=== PATIENT | male | born 1980 | race African-American/Black ===

== ENCOUNTER 2016-11-10 11:11 | Emergency (ER) | payer SELFPAY ==
[~2016-11-10] VITALS: Ht 170.2 cm; Wt 94.6 kg
[~2016-11-10 11:11] MED LIST: MOBIC7.5 MG PO; MOTRIN800 MG PO; NAPROSYN500 MG PO; NOHOMEMEDS; NORCO 5/3251 TABLET PO; PREDNISONE10 M1 PO
[2016-11-10 11:17] VITALS: BP 125/82
[2016-11-10] MEDS ORDERED: PERCOCET 5/31 TABLET PO (13:02)
[2016-11-10] MEDS ORDERED: TOBREX3.5 GM BOTH EYES (13:02)
== END 2016-11-10 13:59 | disposition home or self-care (01) ==
LOC: EME 11:11
DX: S05.02XA Injury of conjunctiva and corneal abrasion without foreign body, left eye, initial encounter (principal); S05.12XA Contusion of eyeball and orbital tissues, left eye, initial encounter; Y04.0XXA Assault by unarmed brawl or fight, initial encounter
CPT/HCPCS: 70480; 99281; 99284

== ENCOUNTER 2017-01-29 11:11 | Emergency (ER) | payer SELFPAY ==
[~2017-01-29] VITALS: Ht 167.6 cm; Wt 95.3 kg
[~2017-01-29 11:11] MED LIST changes: +PERCOCET 5/31 TABLET PO; +TOBREX3.5 GM BOTH EYES
[2017-01-29] MEDS ORDERED: AMOXICILLIN500 MG PO (12:23)
[2017-01-29] MEDS ORDERED: NAPROSYN500 MG PO (12:23)
[2017-01-29 12:42] VITALS: BP 189/108
== END 2017-01-29 12:43 | disposition home or self-care (01) ==
LOC: EXP 11:11 → EME 11:11 → EXP 12:43
PROC: 3E0T3BZ Introduction of Anesthetic Agent into Peripheral Nerves and Plexi, Percutaneous Approach (ICD-10-PCS; principal; 2017-01-29)
DX: K08.89 Other specified disorders of teeth and supporting structures (principal)
CPT/HCPCS: 99281; 99283

== ENCOUNTER 2017-06-06 17:04 | Emergency (ER) | payer SELFPAY ==
[~2017-06-06] VITALS: Ht 165.1 cm; Wt 90.9 kg
[~2017-06-06 17:04] MED LIST changes: +AMOXICILLIN500 MG PO
[2017-06-06 17:24] LABS: HEMATOCRIT 48.6 % (38.0-50.0); MCH 30.5 PG (29.0-34.0); MCV 89.8 FL (86-99); MEAN PLAT.VOLUME 10.5 uM^3 (9.0-12.4); PLATELET COUNT 357 K/uL (156-360); RBC DIS.WIDTH-CV 12.4 % (11.8-14.6); RBC DIS.WIDTH-SD 41.2 % (39-53); RED BLOOD COUNT 5.41 M/uL (4.00-5.50); WHITE BLOOD COUNT 10.2 K/uL (4.1-10.2)
[2017-06-06 17:37] LABS: CHLORIDE 104 mEq/L (99-109); SODIUM 141 mEq/L (136-147)
[2017-06-06 17:39] LABS: GLUCOSE 149 mg/dL (70-99)
[2017-06-06 17:40] LABS: ANION GAP 16 MEQ/L (2-14)
[2017-06-06 17:41] LABS: TOTAL BILIRUBIN 0.6 mg/dL (0.0-1.0)
[2017-06-06 17:42] LABS: ALKALINE PHOSPHATASE 99 IU/L (3-129)
[2017-06-06 17:43] LABS: GFR ESTIMATE (CALCULATED) > 59 mL/min/
[2017-06-06 17:44] LABS: UREA NITROGEN (BUN) 8 mg/dL (9-23)
[2017-06-06 19:25] LABS: LIPASE 12 U/L (1.0-51.0)
[2017-06-06 20:14] LABS: ADD MIUA? YES; BILIRUBIN NEGATIVE; BLOOD NEGATIVE; COLOR AMBER ((YELLOW)); GLUCOSE (STRIP) NEGATIVE; KETONES 20; LEUKOCYTES SMALL; NITRITE NEGATIVE; PROTEIN (STRIP) 100
[2017-06-06 20:39] LABS: BACTERIA NONE SEEN /HPF; EPITHELIAL CELLS 1+ /HPF; MUCUS 4+ /LPF; UCUL ADDED? YES; WHITE BLOOD CELLS 15-20 /HPF (0-5)
[2017-06-06] MEDS ORDERED: DOXYCYCLINE HY100 MG PO (21:12)
[2017-06-06 22:40] VITALS: BP 146/80
== END 2017-06-06 22:45 | disposition home or self-care (01) ==
LOC: EME 17:04
DX: R10.9 Unspecified abdominal pain (principal); F17.200 Nicotine dependence, unspecified, uncomplicated
CPT/HCPCS: 74176; 80053; 81003; 83690; 85027; 87086; 99281; 99285; J1885; J2270; J2405

== ENCOUNTER 2017-06-10 17:18 | Emergency (ER) | payer SELFPAY ==
[~2017-06-10] VITALS: Ht 167.6 cm; Wt 90.0 kg
[~2017-06-10 17:18] MED LIST changes: +DOXYCYCLINE HY100 MG PO
[2017-06-10 19:17] LABS: HEMATOCRIT 48.6 % (38.0-50.0); MCH 30.2 PG (29.0-34.0); MCHC 34.2 G/DL (30.0-36.0); MCV 88.4 FL (86-99); MEAN PLAT.VOLUME 10.6 uM^3 (9.0-12.4); PLATELET COUNT 360 K/uL (156-360); RBC DIS.WIDTH-CV 11.9 % (11.8-14.6); RBC DIS.WIDTH-SD 39.2 % (39-53); WHITE BLOOD COUNT 7.7 K/uL (4.1-10.2)
[2017-06-10 19:28] LABS: CHLORIDE 103 mEq/L (99-109); POTASSIUM 3.9 mEq/L (3.7-5.4); SODIUM 143 mEq/L (136-147)
[2017-06-10 19:30] LABS: GLUCOSE 110 mg/dL (70-99)
[2017-06-10 19:31] LABS: ANION GAP 17 MEQ/L (2-14)
[2017-06-10 19:34] LABS: GFR ESTIMATE (CALCULATED) > 59 mL/min/
[2017-06-10 19:35] LABS: UREA NITROGEN (BUN) 11 mg/dL (9-23)
[2017-06-10 19:37] LABS: TROP-I INTERPRETATION NEGATIVE; TROPONIN-I < 0.01 ng/mL (0.0-0.30)
[2017-06-10 21:13] LABS: TOTAL BILIRUBIN 1.1 mg/dL (0.0-1.0)
[2017-06-10 21:14] LABS: ALKALINE PHOSPHATASE 90 IU/L (3-129)
[2017-06-10 21:16] LABS: DIRECT BILIRUBIN 0.4 mg/dL (0.0-0.3)
[2017-06-10 21:17] LABS: LIPASE 12 U/L (1.0-51.0)
[2017-06-10 21:27] LABS: INTERNAL CONTROL VALID? YES; MONOSPOT (MONONUCLEOSIS SEROL) NEGATIVE
[2017-06-10 21:30] LABS: ADD MIUA? YES; BILIRUBIN NEGATIVE; BLOOD NEGATIVE; COLOR AMBER ((YELLOW)); GLUCOSE (STRIP) NEGATIVE; KETONES 20; LEUKOCYTES TRACE; NITRITE NEGATIVE; PROTEIN (STRIP) 100; SPECIFIC GRAVITY 1.045 (1.000-1.030)
[2017-06-10 21:45] LABS: INFLUENZA A VIRAL ANTIGEN NEGATIVE; INFLUENZA B VIRAL ANTIGEN NEGATIVE
[2017-06-10 21:47] LABS: RED BLOOD CELLS 0-5 /HPF (0-5); WHITE BLOOD CELLS 0-5 /HPF (0-5)
[2017-06-10 21:48] LABS: BACTERIA 1+ /HPF; CASTS PRESENT /LPF; CRYSTALS NONE SEEN; EPITHELIAL CELLS RARE /HPF; HYALINE CASTS 0-5 /LPF; MUCUS 3+ /LPF; UCUL ADDED? NO
[2017-06-10 23:31] LABS: TROP-I INTERPRETATION NEGATIVE; TROPONIN-I < 0.01 ng/mL (0.0-0.30)
[2017-06-11] MEDS ORDERED: FLAGYL500 MG PO (01:16)
[2017-06-11] MEDS ORDERED: CIPRO500 MG PO (01:16)
[2017-06-11 01:29] VITALS: BP 177/89
[2017-06-11] MEDS ORDERED: ZOFRAN ODT4 MG PO (01:31)
== END 2017-06-11 01:33 | disposition home or self-care (01) ==
LOC: EME 17:18
PROVIDERS: Physician Assistant Medical
DX: K51.30 Ulcerative (chronic) rectosigmoiditis without complications (principal); R10.9 Unspecified abdominal pain; R07.9 Chest pain, unspecified; F17.200 Nicotine dependence, unspecified, uncomplicated
CPT/HCPCS: 71020; 74177; 80048; 80076; 81003; 83690; 84484; 85027; 86308; 87502; 93005; 99281; 99285; J1885; J2270; J2405; J7030

== ENCOUNTER 2017-09-25 15:18 | Observation (INO) | payer OTHER ==
[~2017-09-25] VITALS: Ht 170.2 cm; Wt 79.3 kg
[~2017-09-25 15:18] MED LIST changes: +CIPRO500 MG PO; +FLAGYL500 MG PO; +ZOFRAN ODT4 MG PO
[2017-09-25 16:06] LABS: HEMATOCRIT 46.9 % (38.0-50.0); HEMOGLOBIN 16.4 G/DL (12.5-16.6); MCH 31.1 PG (29.0-34.0); MCV 88.8 FL (86-99); PLATELET COUNT 338 K/uL (156-360); RBC DIS.WIDTH-CV 11.9 % (11.8-14.6); RBC DIS.WIDTH-SD 38.5 % (39-53); RED BLOOD COUNT 5.28 M/uL (4.00-5.50); WHITE BLOOD COUNT 7.2 K/uL (4.1-10.2)
[2017-09-25 16:17] LABS: ALBUMIN 4.4 g/dL (3.2-4.8); CHLORIDE 94 mEq/L (99-109); POTASSIUM 2.8 mEq/L (3.7-5.4); SODIUM 135 mEq/L (136-147)
[2017-09-25 16:20] LABS: GLUCOSE 182 mg/dL (70-99); TOTAL PROTEIN 8.3 g/dL (6.4-8.3)
[2017-09-25 16:22] LABS: TOTAL BILIRUBIN 1.1 mg/dL (0.0-1.0)
[2017-09-25 16:23] LABS: ALKALINE PHOSPHATASE 79 IU/L (3-129); CREATININE 1.4 mg/dL (0.6-1.3); GFR ESTIMATE (CALCULATED) > 59 mL/min/ (58.99-99999)
[2017-09-25 16:24] LABS: UREA NITROGEN (BUN) 10 mg/dL (9-23)
[2017-09-25 16:25] LABS: AST (GOT) 25 IU/L (2-34)
[2017-09-25 16:26] LABS: ALT (GPT) 24 IU/L (3-49)
[2017-09-25 17:38] LABS: DIRECT BILIRUBIN 0.4 mg/dL (0.0-0.3)
[2017-09-25 17:39] LABS: LIPASE 19 U/L (1.0-51.0)
[2017-09-25 20:17] LABS: APPEARANCE CLEAR ((CLEAR)); BILIRUBIN SMALL; BLOOD NEGATIVE; COLOR AMBER ((YELLOW)); GLUCOSE (STRIP) NEGATIVE; KETONES 20; LEUKOCYTES NEGATIVE; NITRITE NEGATIVE; PROTEIN (STRIP) 100
[2017-09-25 20:24] LABS: AMPHETAMINE NEGATIVE (500 ng/mL); BARBITURATES NEGATIVE (200 ng/mL); BENZODIAZEPINES NEGATIVE (150 ng/mL); BUPRENORPHINE NEGATIVE (10 ng/mL); COCAINE NEGATIVE (150 ng/mL); METHADONE NEGATIVE (200 ng/mL); METHAMPHETAMINE NEGATIVE (500 ng/mL); OPIATES (MORPHINE) NEGATIVE (100 ng/mL); OXYCODONE NEGATIVE (100 ng/mL); PHENCYCLIDINE NEGATIVE (25 ng/mL); PROPOXYPHENE NEGATIVE (300 ng/mL); THC CANNABINOIDS PRESUMPTIVE POSITIVE (50 ng/mL); TRICYCLIC ANTIDEPRESSANTS NEGATIVE (300 ng/mL)
[2017-09-25 20:30] LABS: BACTERIA NONE SEEN /HPF; EPITHELIAL CELLS 1+ /HPF; MUCUS 4+ /LPF; RED BLOOD CELLS 0-5 /HPF (0-5); UCUL ADDED? YES
[2017-09-25 22:31] LABS: Estimated Average Glucose 91 mg/dL (70-123); HEMOGLOBIN A1c (GLYCOHEMOGLOB) 4.8 % HGB (Below 5.7)
[2017-09-25 22:40] VITALS: BP 159/105
[2017-09-26 00:20] LABS: TROP-I INTERPRETATION NEGATIVE; TROPONIN-I 0.02 ng/mL (0.0-0.30)
[2017-09-26 04:53] VITALS: BP 130/77
[2017-09-26 05:45] LABS: HEMATOCRIT 41.3 % (38.0-50.0); MCH 30.2 PG (29.0-34.0); MCHC 33.2 G/DL (30.0-36.0); PLATELET COUNT 281 K/uL (156-360); RBC DIS.WIDTH-CV 12.2 % (11.8-14.6); RBC DIS.WIDTH-SD 40.8 % (39-53); RED BLOOD COUNT 4.54 M/uL (4.00-5.50); TROP-I INTERPRETATION NEGATIVE; TROPONIN-I 0.01 ng/mL (0.0-0.30); WHITE BLOOD COUNT 7.9 K/uL (4.1-10.2)
[2017-09-26 05:47] LABS: HEMOGLOBIN 13.7 G/DL (12.5-16.6)
[2017-09-26 05:54] LABS: CHLORIDE 102 MEQ/L (99-109); CREATININE 1.2 MG/DL (0.6-1.3); GFR ESTIMATE (CALCULATED) > 59 mL/min/ (58.99-99999); POTASSIUM 3.1 MEQ/L (3.7-5.4); SODIUM 140 MEQ/L (136-147); UREA NITROGEN (BUN) 10 mg/dL (9-23)
[2017-09-26 05:58] LABS: GLUCOSE 95 mg/dL (70-99)
[2017-09-26 07:52] LABS: CREATINE KINASE 211 IU/L (1-294)
[2017-09-26 09:18] VITALS: BP 186/114
[2017-09-26 11:00] VITALS: BP 136/84
[2017-09-26] MEDS ORDERED: POLYETHYLENE GL17 GM PO (13:00)
[2017-09-26] MEDS ORDERED: ONDANSETRON ODT4 MG PO (13:00)
[2017-09-26] MEDS ORDERED: CEFDINIR300 MG PO (13:00)
[2017-09-26 13:58] LABS: TROP-I INTERPRETATION NEGATIVE; TROPONIN-I < 0.01 ng/mL (0.0-0.30)
[2017-09-26 15:47] VITALS: BP 132/89
== END 2017-09-26 17:05 | disposition home or self-care (01) ==
LOC: EME 15:18 → 5WEST 21:36 → EDOF 21:36 → ENRESERV 21:38 → 5WEST 22:32
PROVIDERS: Hospitalist; Physician Assistant
DX: E87.6 Hypokalemia (principal); E86.0 Dehydration; R10.10 Upper abdominal pain, unspecified; E87.1 Hypo-osmolality and hyponatremia; I10 Essential (primary) hypertension; R07.9 Chest pain, unspecified; R11.2 Nausea with vomiting, unspecified; T40.7X5A Adverse effect of cannabis (derivatives), initial encounter; F12.90 Cannabis use, unspecified, uncomplicated; Z86.69 Personal history of other diseases of the nervous system and sense organs; K59.09 Other constipation; Z82.3 Family history of stroke; F17.210 Nicotine dependence, cigarettes, uncomplicated; Z91.013 Allergy to seafood
CPT/HCPCS: 71020; 74177; 80048; 80053; 81003; 82248; 82550; 82948; 83036; 83605; 83690; 84484; 84999; 85027; 87040; 87086; 93005; 93306; 99281; 99285; C9113; G0378; J0696; J1200; J1650; J1885; J2270; J2765; J3010; J3480; J7030

== ENCOUNTER 2018-02-01 19:52 | Emergency (ER) | payer OTHER ==
[~2018-02-01] VITALS: Ht 170.2 cm; Wt 80.6 kg
[~2018-02-01 19:52] MED LIST changes: +CEFDINIR300 MG PO; +ONDANSETRON ODT4 MG PO; +POLYETHYLENE GL17 GM PO
[2018-02-01] MEDS ORDERED: FLEXERIL10 MG PO (21:10)
[2018-02-01] MEDS ORDERED: MOTRIN800 MG PO (21:10)
[2018-02-01 21:34] VITALS: BP 165/100
== END 2018-02-01 21:35 | disposition home or self-care (01) ==
LOC: RME 19:52 → EME 19:52 → RME 21:35
DX: M62.838 Other muscle spasm (principal); V49.9XXA Car occupant (driver) (passenger) injured in unspecified traffic accident, initial encounter; Y92.410 Unspecified street and highway as the place of occurrence of the external cause; I10 Essential (primary) hypertension
CPT/HCPCS: 99281; 99284

== ENCOUNTER 2018-05-15 13:49 | Inpatient (IN) | payer OTHER ==
[~2018-05-15] VITALS: Ht 170.2 cm; Wt 72.0 kg
[~2018-05-15 13:49] MED LIST changes: +FLEXERIL10 MG PO
[2018-05-15] MEDS ORDERED: PROPRANOLOL HCL80 MG PO (14:13)
[2018-05-15 14:36] LABS: HEMATOCRIT 52.3 % (38.0-50.0); HEMOGLOBIN 18.3 G/DL (12.5-16.6); MCH 30.7 PG (29.0-34.0); MCV 87.8 FL (86-99); PLATELET COUNT 377 K/uL (156-360); RBC DIS.WIDTH-CV 12.3 % (11.8-14.6); RBC DIS.WIDTH-SD 39.8 % (39-53); RED BLOOD COUNT 5.96 M/uL (4.00-5.50); WHITE BLOOD COUNT 9.7 K/uL (4.1-10.2)
[2018-05-15 14:45] LABS: ALBUMIN 5.7 g/dL (3.2-4.8); CHLORIDE 102 mEq/L (99-109); POTASSIUM 3.6 mEq/L (3.7-5.4); SODIUM 138 mEq/L (136-147)
[2018-05-15 14:48] LABS: GLUCOSE 146 mg/dL (70-99); TOTAL PROTEIN 10.6 g/dL (6.4-8.3)
[2018-05-15 14:50] LABS: TOTAL BILIRUBIN 0.8 mg/dL (0.0-1.0)
[2018-05-15 14:51] LABS: ALKALINE PHOSPHATASE 114 IU/L (3-129); GFR ESTIMATE (CALCULATED) 31 mL/min/ (58.99-99999)
[2018-05-15 14:53] LABS: AST (GOT) 33 IU/L (2-34); UREA NITROGEN (BUN) 38 mg/dL (9-23)
[2018-05-15 14:54] LABS: ALT (GPT) 29 IU/L (3-49)
[2018-05-15 14:55] LABS: LIPASE 15 U/L (1.0-51.0)
[2018-05-15 15:41] LABS: SERUM ETHYL ALCOHOL < 10 mg/dL
[2018-05-15 15:44] LABS: CREATINE KINASE 545 IU/L (1-294)
[2018-05-15 17:54] LABS: APPEARANCE SL.HAZY ((CLEAR)); BILIRUBIN NEGATIVE; BLOOD SMALL; COLOR YELLOW ((YELLOW)); GLUCOSE (STRIP) NEGATIVE; KETONES 20; LEUKOCYTES NEGATIVE; NITRITE NEGATIVE; PROTEIN (STRIP) 100; SPECIFIC GRAVITY 1.027 (1.000-1.030)
[2018-05-15 18:00] LABS: BACTERIA NONE SEEN /HPF; EPITHELIAL CELLS RARE /HPF; MUCUS 1+ /LPF; RED BLOOD CELLS 0-5 /HPF (0-5); UCUL ADDED? NO; WHITE BLOOD CELLS 0-5 /HPF (0-5)
[2018-05-15 18:08] LABS: AMPHETAMINE NEGATIVE (500 ng/mL); BARBITURATES NEGATIVE (200 ng/mL); BENZODIAZEPINES PRESUMPTIVE POSITIVE (150 ng/mL); BUPRENORPHINE NEGATIVE (10 ng/mL); COCAINE NEGATIVE (150 ng/mL); METHADONE NEGATIVE (200 ng/mL); METHAMPHETAMINE NEGATIVE (500 ng/mL); OPIATES (MORPHINE) NEGATIVE (100 ng/mL); OXYCODONE NEGATIVE (100 ng/mL); PHENCYCLIDINE NEGATIVE (25 ng/mL); PROPOXYPHENE NEGATIVE (300 ng/mL); THC CANNABINOIDS PRESUMPTIVE POSITIVE (50 ng/mL); TRICYCLIC ANTIDEPRESSANTS NEGATIVE (300 ng/mL)
[2018-05-15 18:37] LABS: BENZODIAZEPINES, URINE SCREEN Negative (200 ng/mL)
[2018-05-15 21:02] LABS: COMMENTS - BLOOD GASES A+C+; DEVICE RA; PCO2 26 mm Hg (35-45); PO2 107 mm Hg (80-100); SITE LR; pH 7.44 (7.35-7.45)
[2018-05-15 21:03] LABS: BASE EXCESS -4.5 mEq/L (-3 to +3); BICARBONATE 17.7 mEq/L (22-26); CARBOXY HGB 1.8 % (0-5); METHEMOGLOBIN 1.3 % (0-1.5); O2 SATURATION (CALCULATED) 96.2 % (95-99)
[2018-05-15 21:08] VITALS: BP 187/97
[2018-05-15 23:28] VITALS: BP 181/91
[2018-05-16 00:47] VITALS: BP 160/80
[2018-05-16 06:20] LABS: BASOPHIL (%) 0.2 % (0-1); EOSINOPHIL (%) 0 % (0-5); HEMATOCRIT 42.6 % (38.0-50.0); IMMATURE GRANULOCYTE (%) 0.3 % (0.0-0.7); LYMPHOCYTE (%) 19.2 % (15-42); LYMPHOCYTE COUNT 1.9 K/uL (1.0-2.8); MCH 30.3 PG (29.0-34.0); MCV 89.1 FL (86-99); MONOCYTE (%) 10.2 % (3-12); NEUTROPHIL (%) 70.1 % (45-76); NEUTROPHIL COUNT 6.9 K/uL (1.8-6.4); PLATELET COUNT 297 K/uL (156-360); RBC DIS.WIDTH-CV 12.6 % (11.8-14.6); RBC DIS.WIDTH-SD 41.6 % (39-53); WHITE BLOOD COUNT 9.9 K/uL (4.1-10.2)
[2018-05-16 06:22] LABS: HEMOGLOBIN 14.5 G/DL (12.5-16.6); RED BLOOD COUNT 4.78 M/uL (4.00-5.50)
[2018-05-16 06:28] LABS: CHLORIDE 108 MEQ/L (99-109); POTASSIUM 3.8 MEQ/L (3.7-5.4); SODIUM 139 MEQ/L (136-147); UREA NITROGEN (BUN) 28 mg/dL (9-23)
[2018-05-16 06:31] LABS: CREATININE 1.5 MG/DL (0.6-1.3); GFR ESTIMATE (CALCULATED) > 59 mL/min/ (58.99-99999); GLUCOSE 109 mg/dL (70-99)
[2018-05-16 07:09] VITALS: BP 129/67
[2018-05-16 16:35] VITALS: BP 140/80
[2018-05-16 17:25] LABS: UR CREATININE CONCENTRATION 518.7 MG/DL
[2018-05-16 22:57] VITALS: BP 192/96
[2018-05-17] LABS: ALBUMIN 4.1 g/dL (3.2-4.8)
[2018-05-17 00:07] LABS: ALKALINE PHOSPHATASE 73 IU/L (3-129); TOTAL BILIRUBIN 1.2 mg/dL (0.0-1.0); TOTAL PROTEIN 7.2 g/dL (6.4-8.3)
[2018-05-17 00:08] LABS: AST (GOT) 27 IU/L (2-34); DIRECT BILIRUBIN 0.4 mg/dL (0.0-0.3)
[2018-05-17 00:09] LABS: ALT (GPT) 17 IU/L (3-49); LIPASE 29 U/L (1.0-51.0)
[2018-05-17 06:13] LABS: BASOPHIL (%) 0.6 % (0-1); EOSINOPHIL (%) 0.4 % (0-5); HEMATOCRIT 40.6 % (38.0-50.0); HEMOGLOBIN 13.8 G/DL (12.5-16.6); IMMATURE GRANULOCYTE (%) 0.3 % (0.0-0.7); LYMPHOCYTE (%) 22.9 % (15-42); LYMPHOCYTE COUNT 1.6 K/uL (1.0-2.8); MCH 30.8 PG (29.0-34.0); MCV 90.6 FL (86-99); MONOCYTE (%) 9.3 % (3-12); MONOCYTE COUNT 0.6 K/uL (0-0.8); NEUTROPHIL (%) 66.5 % (45-76); NEUTROPHIL COUNT 4.6 K/uL (1.8-6.4); PLATELET COUNT 255 K/uL (156-360); RBC DIS.WIDTH-CV 12.5 % (11.8-14.6); RBC DIS.WIDTH-SD 41.4 % (39-53); RED BLOOD COUNT 4.48 M/uL (4.00-5.50); WHITE BLOOD COUNT 6.9 K/uL (4.1-10.2)
[2018-05-17 06:37] LABS: A/G RATIO 1.4 (1.1-1.8); ALBUMIN 3.9 G/DL (3.4-5.0); CHLORIDE 107 MEQ/L (99-109); CREATINE KINASE 451 IU/L (1-294); CREATININE 1.1 MG/DL (0.6-1.3); GFR ESTIMATE (CALCULATED) > 59 mL/min/ (58.99-99999); GLOBULINS 2.8 G/DL (2.3-3.5); GLUCOSE 103 mg/dL (70-99); POTASSIUM 3.8 MEQ/L (3.7-5.4); SODIUM 140 MEQ/L (136-147); TOTAL CK 451 IU/L (1-294); TOTAL PROTEIN 6.7 G/DL (6.4-8.2); UREA NITROGEN (BUN) 12 mg/dL (9-23)
[2018-05-17 07:12] LABS: CK-MB 2.5 ng/mL (0.0-4.9); CKMB RELATIVE INDEX 0.6 (0.0-3.9)
[2018-05-17 09:47] VITALS: BP 136/82
[2018-05-17 13:44] LABS: AMYLASE 62 IU/L (1-118)
[2018-05-17 16:20] VITALS: BP 156/96
[2018-05-18 06:13] LABS: BASOPHIL COUNT 0.1 K/uL (0-0.1); EOSINOPHIL (%) 2.2 % (0-5); EOSINOPHIL COUNT 0.1 K/uL (0-0.3); HEMATOCRIT 37.5 % (38.0-50.0); HEMOGLOBIN 12.5 G/DL (12.5-16.6); IMMATURE GRANULOCYTE (%) 0.2 % (0.0-0.7); LYMPHOCYTE (%) 37.5 % (15-42); LYMPHOCYTE COUNT 1.9 K/uL (1.0-2.8); MCH 30.3 PG (29.0-34.0); MCHC 33.3 G/DL (30.0-36.0); MONOCYTE (%) 9.7 % (3-12); MONOCYTE COUNT 0.5 K/uL (0-0.8); NEUTROPHIL (%) 49.4 % (45-76); NEUTROPHIL COUNT 2.5 K/uL (1.8-6.4); PLATELET COUNT 221 K/uL (156-360); RBC DIS.WIDTH-CV 12.2 % (11.8-14.6); RBC DIS.WIDTH-SD 40.6 % (39-53); RED BLOOD COUNT 4.12 M/uL (4.00-5.50); WHITE BLOOD COUNT 5.1 K/uL (4.1-10.2)
[2018-05-18 06:52] LABS: ALBUMIN 3.4 G/DL (3.2-4.8); ALKALINE PHOSPHATASE 56 IU/L (3-129); ALT (GPT) 14 IU/L (3-49); AST (GOT) 20 IU/L (2-34); CHLORIDE 106 MEQ/L (99-109); GFR ESTIMATE (CALCULATED) > 59 mL/min/ (58.99-99999); GLUCOSE 82 mg/dL (70-99); POTASSIUM 3.5 MEQ/L (3.7-5.4); SODIUM 139 MEQ/L (136-147); TOTAL PROTEIN 5.5 G/DL (6.4-8.3); UREA NITROGEN (BUN) 8 mg/dL (9-23)
[2018-05-18 07:08] VITALS: BP 130/58
[2018-05-18 12:31] LABS: C DIFF TOXIN NEGATIVE (NEGATIVE)
[2018-05-18 15:45] VITALS: BP 148/80
[2018-05-19 00:27] VITALS: BP 156/88
[2018-05-19 06:08] LABS: BASOPHIL (%) 0.7 % (0-1); EOSINOPHIL (%) 0.2 % (0-5); HEMATOCRIT 42.5 % (38.0-50.0); HEMOGLOBIN 14.3 G/DL (12.5-16.6); IMMATURE GRANULOCYTE (%) 0.2 % (0.0-0.7); LYMPHOCYTE (%) 16.3 % (15-42); MCHC 33.6 G/DL (30.0-36.0); MCV 89.1 FL (86-99); MONOCYTE (%) 5.6 % (3-12); MONOCYTE COUNT 0.3 K/uL (0-0.8); NEUTROPHIL COUNT 4.6 K/uL (1.8-6.4); PLATELET COUNT 268 K/uL (156-360); RBC DIS.WIDTH-CV 11.8 % (11.8-14.6); RBC DIS.WIDTH-SD 38.8 % (39-53); RED BLOOD COUNT 4.77 M/uL (4.00-5.50); WHITE BLOOD COUNT 5.9 K/uL (4.1-10.2)
[2018-05-19 06:33] LABS: ALBUMIN 4.1 G/DL (3.2-4.8); ALKALINE PHOSPHATASE 69 IU/L (3-129); ALT (GPT) 17 IU/L (3-49); AST (GOT) 22 IU/L (2-34); CHLORIDE 104 MEQ/L (99-109); GFR ESTIMATE (CALCULATED) > 59 mL/min/ (58.99-99999); GLUCOSE 92 mg/dL (70-99); POTASSIUM 4.2 MEQ/L (3.7-5.4); SODIUM 140 MEQ/L (136-147); TOTAL BILIRUBIN 0.9 MG/DL (0.0-1.0); UREA NITROGEN (BUN) 7 mg/dL (9-23)
[2018-05-19 06:40] LABS: TOTAL PROTEIN 6.6 G/DL (6.4-8.3)
[2018-05-19 06:55] VITALS: BP 188/98
[2018-05-19 14:28] LABS: ALBUMIN 3.91 G/DL (3.6-4.9); ALPHA-1 GLOBULIN 0.25 G/DL (0.15-0.40); ALPHA-2 GLOBULIN 0.55 G/DL (0.45-0.85); BETA-GLOBULIN 0.86 G/DL (0.65-1.15); GAMMA-GLOBULIN 1.12 G/DL (0.60-1.35)
[2018-05-19 15:45] VITALS: BP 154/89
[2018-05-20 00:03] VITALS: BP 141/80
[2018-05-20 07:31] VITALS: BP 176/98
[2018-05-20] MEDS ORDERED: BENTYL20 MG PO (09:39)
[2018-05-20] MEDS ORDERED: OMEPRAZOLE20 M2 PO (09:40)
[2018-05-20] MEDS ORDERED: CIPRO500 MG PO (09:41)
[2018-05-20] MEDS ORDERED: FLAGYL500 MG PO (09:42)
[2018-05-20 11:57] VITALS: BP 145/83
== END 2018-05-20 11:55 | disposition home or self-care (01) | DRG 392 ==
LOC: EME 13:49 → EDOF 20:23 → 5EAST 20:23 → ENRESERV 20:25 → 5EAST 21:11
PROVIDERS: Hospitalist; Internal Medicine; Nurse Practitioner Adult Health; Nurse Practitioner Family; Specialist; Student in an Organized Health Care Education/Training Program
PROC: 0DB38ZX Excision of Lower Esophagus, Via Natural or Artificial Opening Endoscopic, Diagnostic (ICD-10-PCS; principal; 2018-05-18)
PROC: 0DB18ZX Excision of Upper Esophagus, Via Natural or Artificial Opening Endoscopic, Diagnostic (ICD-10-PCS; principal; 2018-05-18)
PROC: 0DB68ZX Excision of Stomach, Via Natural or Artificial Opening Endoscopic, Diagnostic (ICD-10-PCS; principal; 2018-05-18)
PROC: 0DBL8ZX Excision of Transverse Colon, Via Natural or Artificial Opening Endoscopic, Diagnostic (ICD-10-PCS; 2018-05-19)
PROC: 0DBM8ZX Excision of Descending Colon, Via Natural or Artificial Opening Endoscopic, Diagnostic (ICD-10-PCS; 2018-05-19)
PROC: 0DBK8ZX Excision of Ascending Colon, Via Natural or Artificial Opening Endoscopic, Diagnostic (ICD-10-PCS; 2018-05-19)
DX: K29.70 Gastritis, unspecified, without bleeding (principal); N17.9 Acute kidney failure, unspecified; K92.0 Hematemesis; E86.0 Dehydration; E87.6 Hypokalemia; K56.41 Fecal impaction; K62.89 Other specified diseases of anus and rectum; K64.8 Other hemorrhoids; R13.10 Dysphagia, unspecified; N41.9 Inflammatory disease of prostate, unspecified; R31.29 Other microscopic hematuria; E83.52 Hypercalcemia; G40.909 Epilepsy, unspecified, not intractable, without status epilepticus; I10 Essential (primary) hypertension; J45.909 Unspecified asthma, uncomplicated; M19.90 Unspecified osteoarthritis, unspecified site; E66.9 Obesity, unspecified; F12.10 Cannabis abuse, uncomplicated; M51.26 Other intervertebral disc displacement, lumbar region; F17.210 Nicotine dependence, cigarettes, uncomplicated
CPT/HCPCS: 36600; 72148; 74176; 76770; 80048; 80048 91; 80053; 80076; 81003; 82150; 82436; 82550; 82553; 82570; 83605; 83690; 84133; 84165; 84300; 84999; 85025; 85027; 87177; 87493; 87506; 88305; 88312; 88342 TC; 99281; 99284; C9113; G0480; J0360; J0744; J1170; J1626; J1630; J1650; J1885; J2060; J2250; J2405; J2765; J3010; J3480; J7030; J7120; Q0164; S0028; S0030